=== PATIENT | female | born 1985 | race African-American/Black ===

== ENCOUNTER → 2022-07-09 08:44 | Outpatient (CLI) | payer OTHER, SELFPAY ==
--- NOTE | ~2022-07-09 | US_ITS ---
EXAMINATION: US right upper quadrant DATE: 07/09/2022 09:23 INDICATION: RUQ PAIN TECHNIQUE: Multiple grayscale and Doppler ultrasound images of the right upper quadrant were obtained . COMPARISON: None available. FINDINGS: The visualized portions of the pancreas are normal, Limited visibility of the pancreatic ta il. 3.3 cm right lobe hemangioma, with increased echogenicity and echotexture. No surface nodularity. Normal hepatopetal flow in the main portal vein. The gallbladder is normal with no abnormal wall thi ckening, pericholecystic fluid or stones. The common bile duct measures 4 mm. There was no sonographi c [place] sign. IMPRESSION: Echogenic liver, most commonly due to steatosis but also can be seen with hepatitis and fibrosis. Rig ht liver lobe hemangioma. Otherwise normal right upper quadrant ultrasound findings. Reviewed, dictated and finalized at location [facility]. IMPRESSION: Echogenic liver, most commonly due to steatosis but also can be seen with hepat itis and fibrosis. Right liver lobe hemangioma. Otherwise normal right upper qu adrant ultrasound findings.
== END ==
PROVIDERS: PCP Physician Assistant; Visit Provider Physician Assistant
DX: K82.8 Other specified diseases of gallbladder (principal)
CPT/HCPCS: 76705